=== PATIENT | female | born 1950 | race Caucasian/White ===

== ENCOUNTER 2016-08-01 10:51 | Outpatient (CLI) | payer MEDICARE, OTHER ==
[~2016-08-01 10:51] MED LIST: ASPI-1100 PO; BENA10TA2 PO; CLOP75TA2 PO; GLIM4TAB2 PO; ISOS60TA4 PO; LEVO125T PO; METF500T4 PO; METO50TA3 PO; NITR0.4T6 SL; PANT40TA2 PO; RANO500T3 PO; RISP1TAB7 PO; SERT50TA12 PO; TEMA15CA PO
[2016-08-01 11:55] LABS: ALBUMIN 4.2 g/dL (3.4-5.0); BILIRUBIN,TOTAL 0.5 mg/dL (0.2-1.0); CALCIUM, SERUM 9.1 mg/dL (8.5-10.1); CREATININE 0.8 mg/dL (0.6-1.3); POTASSIUM 4.2 mmol/L (3.5-5.1); TOTAL PROTEIN, SERUM 7.6 g/dL (6.4-8.2)
[2016-08-01 11:59] LABS: THYROID STIMULATING HORMONE 3.197 uIU/mL (0.358-3.74)
== END 2016-08-01 23:59 | disposition home or self-care (01) ==
LOC: LAB 10:51
PROVIDERS: ATTEND Internal Medicine Cardiovascular Disease
DX: E11.9 Type 2 diabetes mellitus without complications (principal); I25.10 Atherosclerotic heart disease of native coronary artery without angina pectoris; E78.5 Hyperlipidemia, unspecified; R53.83 Other fatigue
CPT/HCPCS: 36415; 80053-TC; 80061-TC; 82306; 84443-TC

== ENCOUNTER 2016-12-26 09:39 | Outpatient (CLI) | payer MEDICARE, OTHER ==
[2016-12-26] MEDS ORDERED: REGADENOSON 0.4 MG/5 ML DISP.SYRIN IVP ONE (09:49)
== END 2016-12-26 23:59 | disposition home or self-care (01) ==
LOC: NM 09:39
PROVIDERS: ATTEND Internal Medicine Cardiovascular Disease
DX: I25.119 Atherosclerotic heart disease of native coronary artery with unspecified angina pectoris (principal); I10 Essential (primary) hypertension; E11.9 Type 2 diabetes mellitus without complications; Z95.5 Presence of coronary angioplasty implant and graft
CPT/HCPCS: 78452; A9502; J2785

== ENCOUNTER 2018-02-12 07:23 | Outpatient (CLI) | payer MEDICARE, OTHER ==
[~2018-02-12 07:23] MED LIST changes: -BENA10TA2 PO; +BENA10TA9 PO; +CLOP75TA15 PO; -CLOP75TA2 PO; +METF-440 PO; -METF500T4 PO; +METO50TA16 PO; -METO50TA3 PO; +NITR0.4T48 SL; -NITR0.4T6 SL
[2018-02-12] MEDS ORDERED: REGADENOSON 0.4 MG/5 ML DISP.SYRIN IVP ONE (08:00)
== END 2018-02-12 23:59 | disposition home or self-care (01) ==
LOC: NM 07:23
PROVIDERS: ATTEND Internal Medicine Cardiovascular Disease
DX: I25.119 Atherosclerotic heart disease of native coronary artery with unspecified angina pectoris (principal); I10 Essential (primary) hypertension; E11.9 Type 2 diabetes mellitus without complications; Z95.5 Presence of coronary angioplasty implant and graft
CPT/HCPCS: 78452; A9502; J2785

== ENCOUNTER 2023-08-22 19:34 | Emergency (ER) | payer MEDICARE, OTHER ==
[~2023-08-22] VITALS: Ht 165.1 cm; Wt 78.0 kg
[~2023-08-22 19:34] MED LIST changes: +BENA10TA74 PO; -BENA10TA9 PO; -GLIM4TAB2 PO; +GLIM4TAB37 PO; -ISOS60TA4 PO; +ISOS60TA72 PO
[2023-08-22 19:40] VITALS: TEMP 98.5
[2023-08-22 20:17] LABS: BASOPHILS % (AUTO) 0.5 % (0.0-2.0); EOSINOPHILS # (AUTO) 0.2 K/uL (0.0-0.7); EOSINOPHILS % (AUTO) 2.4 % (0.0-6.0); HEMATOCRIT 38 % (33-45); HEMOGLOBIN 12.7 g/dL (11.5-14.8); LYMPHOCYTES # (AUTO) 4.6 K/uL (0.8-4.8); LYMPHOCYTES % (AUTO) 46.5 % (20.0-44.0); MEAN CORPUSCULAR HEMOGLOBIN 31 PG (26.0-33.0); MEAN CORPUSCULAR HGB CONC 34 g/dl (31.0-36.0); MEAN CORPUSCULAR VOLUME 92 fL (82-100); MONOCYTES # (AUTO) 0.6 K/uL (0.1-1.30); MONOCYTES % (AUTO) 5.9 % (2.0-12.0); NEUTROPHILS # (AUTO) 4.4 K/uL (1.8-8.9); NEUTROPHILS % (AUTO) 44.7 % (43.0-81.0); PLATELET COUNT (AUTO) 191 K/uL (150-450); RED BLOOD CELL COUNT(AUTO) 4.09 MIL/uL (4.0-5.2); RED CELL DISTRIBUTION WIDTH 13.4 % (11.5-15.0); WHITE BLOOD COUNT (AUTO) 9.9 K/uL (4.3-11.0)
[2023-08-22 20:34] LABS: CALCIUM, SERUM 9.7 mg/dL (8.5-10.1); CARBON DIOXIDE 25 mmol/L (21-32); CHLORIDE 104 mmol/L (98-107); CREATININE 0.9 mg/dL (0.6-1.3); GLUCOSE 203 mg/dL (74-106); SODIUM SERUM 139 mmol/L (136-145); UREA NITROGEN, BLOOD 17 mg/dL (7-18)
[2023-08-22 21:44] VITALS: BP 124/75; O2SAT 98
== END 2023-08-22 21:44 | disposition home or self-care (01) ==
LOC: ER 19:36
DX: E11.65 Type 2 diabetes mellitus with hyperglycemia (principal); R53.1 Weakness; R51.9 Headache, unspecified; M25.511 Pain in right shoulder; I10 Essential (primary) hypertension; M19.90 Unspecified osteoarthritis, unspecified site
CPT/HCPCS: 36415; 70450-TC; 71045-TC; 73030-TC; 80048-TC; 84484-TC; 85025-TC

== ENCOUNTER 2023-09-25 17:58 | Emergency (ER) | payer MEDICARE, OTHER ==
[~2023-09-25] VITALS: Ht 152.4 cm; Wt 66.2 kg
[2023-09-25 19:44] LABS: APPEARANCE,URINE Clear (CLEAR); BILIRUBIN,URINE SMALL (NEGATIVE); BLOOD, URINE Small Ery/uL (NEGATIVE); COLOR,URINE YELLOW (YELLOW); KETONES,URINE Trace mg/dL (NEGATIVE); LEUKOCYTE ESTERASE ,URINE Trace (NEGATIVE); NITRITE, URINE Negative (NEGATIVE); PROTEIN,URINE 30 mg/dl (NEGATIVE); UGLUCOSE Negative (NEGATIVE); UROBILINOGEN,URINE 0.2 EU/dL (0.2)
[2023-09-25 19:45] LABS: ADD URINE CULTURE NO; BACTERIA,URINE Few /HPF (None Seen); SQUAMOUS EPITHELIAL CELL,UR Few /HPF (None Seen)
[2023-09-25 19:54] VITALS: TEMP 98.5
[2023-09-25 21:19] VITALS: BP 120/70; O2SAT 98
== END 2023-09-25 21:07 | disposition home or self-care (01) ==
LOC: ER 18:23
DX: N81.4 Uterovaginal prolapse, unspecified (principal); I10 Essential (primary) hypertension; R35.0 Frequency of micturition; E11.9 Type 2 diabetes mellitus without complications; M19.90 Unspecified osteoarthritis, unspecified site; Z86.79 Personal history of other diseases of the circulatory system; Z87.448 Personal history of other diseases of urinary system; Z87.42 Personal history of other diseases of the female genital tract; Z95.5 Presence of coronary angioplasty implant and graft
CPT/HCPCS: 81001

== ENCOUNTER 2024-01-10 19:04 | Emergency (ER) | payer MEDICARE, OTHER ==
[~2024-01-10] VITALS: Ht 152.4 cm; Wt 65.8 kg
[2024-01-10 19:38] LABS: BASOPHILS # (AUTO) 0.1 K/uL (0.0-0.2); BASOPHILS % (AUTO) 0.6 % (0.0-2.0); EOSINOPHILS # (AUTO) 0.1 K/uL (0.0-0.7); EOSINOPHILS % (AUTO) 1.3 % (0.0-6.0); HEMATOCRIT 36 % (33-45); HEMOGLOBIN 12.2 g/dL (11.5-14.8); LYMPHOCYTES # (AUTO) 3.8 K/uL (0.8-4.8); LYMPHOCYTES % (AUTO) 34.2 % (20.0-44.0); MEAN CORPUSCULAR HEMOGLOBIN 31 PG (26.0-33.0); MEAN CORPUSCULAR HGB CONC 33 g/dl (31.0-36.0); MEAN CORPUSCULAR VOLUME 92 fL (82-100); MONOCYTES # (AUTO) 0.7 K/uL (0.1-1.30); MONOCYTES % (AUTO) 6.3 % (2.0-12.0); NEUTROPHILS # (AUTO) 6.3 K/uL (1.8-8.9); NEUTROPHILS % (AUTO) 57.6 % (43.0-81.0); PLATELET COUNT (AUTO) 198 K/uL (150-450); RED BLOOD CELL COUNT(AUTO) 3.95 MIL/uL (4.0-5.2); RED CELL DISTRIBUTION WIDTH 13.4 % (11.5-15.0)
[2024-01-10 19:54] LABS: CALCIUM, SERUM 9.3 mg/dL (8.5-10.1); CARBON DIOXIDE 26 mmol/L (21-32); CHLORIDE 102 mmol/L (98-107); CREATININE 0.9 mg/dL (0.6-1.3); GLUCOSE 248 mg/dL (74-106); SODIUM SERUM 137 mmol/L (136-145); UREA NITROGEN, BLOOD 17 mg/dL (7-18)
[2024-01-10 19:59] LABS: INR 1.05 (0.91-1.10); PARTIAL THROMBOPLASTIN TIME 28.3 SEC (24.3-34.3); PROTHROMBIN TIME 10.8 SECS (9.2-11.1)
[2024-01-10 20:11] LABS: ALANINE AMINOTRANSFERASE 22 U/L (12-78); ALBUMIN 3.7 g/dL (3.4-5.0); ALKALINE PHOSPHATASE 71 U/L (46-116); ASPARTATE AMINOTRANSFERASE 16 U/L (15-37); BILIRUBIN,DIRECT 0.1 mg/dL (0.0-0.2); BILIRUBIN,TOTAL 0.5 mg/dL (0.2-1.0); NT-PRO BNP 172 pg/mL (0-125); TOTAL PROTEIN, SERUM 6.8 g/dL (6.4-8.2)
[2024-01-10 20:22] LABS: LACTIC ACID 1.6 mmol/L (0.4-2.0)
[2024-01-10] MEDS ORDERED: KETOROLAC TROMETHAMINE 15 MG/ML VIAL ONE (20:51)
[2024-01-10] MEDS: IV NS 0.9% 1,000 ML BAG IV ONE (21:10)
[2024-01-10] MEDS: KETOROLAC TROMETHAMINE 15 MG/ML VIAL IV ONE (21:16)
[2024-01-10] MEDS ORDERED: PANT20TA2 PO (21:52)
[2024-01-10] MEDS ORDERED: TRAM-351 PO (21:52)
[2024-01-10] MEDS ORDERED: KETO10TA2 PO (21:52)
[2024-01-10 23:57] VITALS: BP 115/63; TEMP 98.2; O2SAT 96
== END 2024-01-10 23:57 | disposition home or self-care (01) ==
LOC: ER 19:06
DX: R07.89 Other chest pain (principal); R53.1 Weakness; R06.00 Dyspnea, unspecified; E11.9 Type 2 diabetes mellitus without complications; I10 Essential (primary) hypertension; M19.90 Unspecified osteoarthritis, unspecified site; Z79.02 Long term (current) use of antithrombotics/antiplatelets; Z79.82 Long term (current) use of aspirin; Z79.84 Long term (current) use of oral hypoglycemic drugs; Z79.899 Other long term (current) drug therapy
CPT/HCPCS: 99285; 96374; 71045; 96361; 93005; 85025; 80048; 83605; 80076; 36415; 84484 ×2; 85730; 83880; J7030; J1885